=== PATIENT | male | born 1990 | race American Indian/Alaskan Native ===

== ENCOUNTER 2018-01-28 01:08 | Emergency (ER) | payer OTHER ==
[2018-01-28 02:06] LABS: Basophils % (Auto) 0.2 % (0.0-1.8); Eosinophils # (Auto) 0.3 K/mm3 (0.0-0.4); Eosinophils % (Auto) 1.9 % (0.0-4.3); Hematocrit 46.6 % (35.5-45.6); Hemoglobin 15.3 gm/dl (11.8-15.2); Lymphocytes # (Auto) 4.1 K/mm3 (1.2-5.4); Lymphocytes % (Auto) 23.2 % (13.4-35.0); Mean Corpuscular HGB Conc 33 % (32-34); Mean Corpuscular Hemoglobin 29 pg (28-32); Mean Corpuscular Volume 88 fl (84-94); Monocytes # (Auto) 1.7 K/mm3 (0.0-0.8); Monocytes % (Auto) 9.5 % (0.0-7.3); Platelet Count 266 K/mm3 (140-440); Red Blood Count 5.33 M/mm3 (3.65-5.03); Red Cell Distribution Width 13.5 % (13.2-15.2)
--- NOTE | 2018-01-28 02:23 | XRay Report ---
FINAL REPORT EXAM: XR CHEST ROUTINE 2V HISTORY: cough TECHNIQUE: PA and lateral views of the chest were submitted. FINDINGS: The heart size and mediastinum appear normal. The lungs are clear. Pleural fluid is not seen. The bones and soft tissues appear normal. IMPRESSION: Normal chest.
[2018-01-28 03:45] LABS: BUN/Creatinine Ratio 10; Blood Urea Nitrogen 11 mg/dL (9-20); Calcium 9.2 mg/dL (8.4-10.2); Hemolysis Index 8
[2018-01-28 11:28] VITALS: BP 137/92
--- NOTE | 2018-01-28 11:34 | Emergency Department Report ---
ED Chest Pain HPI - General Chief Complaint: Chest Pain Stated Complaint: CHEST PAIN,SHORT OF BREATH Time Seen by Provider: 01/28/18 11:22 Source: patient Mode of arrival: Ambulatory Limitations: No Limitations - History of Present Illness Initial Comments: 27 years old male history of hypertension, not on any medication. Patient presented to the ER with a chief complaint of left-sided chest pain, squeezing in nature and does not radiate associated with cough and shortness of breath. Patient was recently seen at an urgent clinic and he was diagnosed with strep throat without positive test. He is on amoxicillin. Patient stated that his symptoms he is not getting better with antibiotic that he is getting. Patient denied any fever, nausea or vomiting. MD Complaint: chest pain -: days(s) Onset: during rest Pain Location: left chest Severity scale (0 -10): 7 Quality: squeezing - Related Data Allergies Allergy/AdvReac Type Severity Reaction Status Date / Time No Known Allergies Allergy Unverified 01/28/18 01:21 Heart Score - HEART Score History: Slightly suspicious EKG: Non-specific Age: < 45 Risk factors: 1-2 risk factors Troponin: < normal limit HEART Score: 2 - Critical Actions Critical Actions: 0-3 pts:0.9-1.7%risk of adverse cardiac event.Candidate for discharge ED Review of Systems ROS: Stated complaint: CHEST PAIN,SHORT OF BREATH Other details as noted in HPI Comment: All other systems reviewed and negative Constitutional: denies: chills, fever ENT: throat pain Respiratory: cough, shortness of breath. denies: SOB with exertion, SOB at rest Cardiovascular: denies: chest pain, palpitations, dyspnea on exertion Gastrointestinal: denies: abdominal pain, nausea, vomiting, constipation, hematemesis, melena, hematochezia Skin: denies: rash, lesions, change in color, change in hair/nails ED Past Medical Hx - Past Medical History Previous Medical History?: No Hx Hypertension: Yes - Surgical History Past Surgical History?: No - Social History Smoking Status: Never Smoker Substance Use Type: None ED Physical Exam - General Limitations: No Limitations General appearance: alert, in no apparent distress - Head Head exam: Present: atraumatic, normocephalic - Eye Eye exam: Present: normal appearance, PERRL - ENT ENT exam: Present: normal exam, normal orophraynx, mucous membranes moist, TM's normal bilaterally, normal external ear exam - Neck Neck exam: Present: normal inspection, full ROM. Absent: tenderness, meningismus, lymphadenopathy, thyromegaly - Respiratory Respiratory exam: Present: normal lung sounds bilaterally. Absent: respiratory distress, wheezes, rales, rhonchi, stridor, chest wall tenderness, accessory muscle use, decreased breath sounds, prolonged expiratory - Cardiovascular Cardiovascular Exam: Present: regular rate, normal rhythm, normal heart sounds - GI/Abdominal GI/Abdominal exam: Present: soft, normal bowel sounds. Absent: distended, tenderness, guarding, rebound, rigid, organomegaly, mass, bruit, pulsatile mass - Extremities Exam Extremities exam: Present: normal inspection, full ROM, normal capillary refill - Back Exam Back exam: Present: normal inspection, full ROM - Neurological Exam Neurological exam: Present: alert, oriented X3, CN II-XII intact, normal gait - Skin Skin exam: Present: warm, intact, normal color ED Course Vital Signs 01/28/18 01/28/18 01/28/18 01:19 10:54 11:25 Temperature 98.7 F 97.9 F 98.3 F Pulse Rate 85 90 79 Respiratory 17 16 16 Rate Blood Pressure 141/84 150/100 Blood Pressure 137/92 [Right] O2 Sat by Pulse 98 97 100 Oximetry ED Medical Decision Making - Lab Data Result diagrams: 01/28/18 01:27 01/28/18 01:27 - EKG Data -: EKG Interpreted by Me EKG shows normal: sinus rhythm Rate: normal - EKG Data Interpretation: no acute changes - Radiology Data Radiology results: report reviewed Chest x-ray unremarkable. Critical care attestation.: If time is entered above; I have spent that time in minutes in the direct care of this critically ill patient, excluding procedure time. ED Disposition Clinical Impression: Chest pain, Acute bronchitis, Hypertension Disposition: -01 TO HOME OR SELFCARE Is pt being admited?: No Condition: Stable Instructions: Chest Pain (ED), Acute Bronchitis (ED), Hypertension (ED) Referrals: PRIMARY CARE,MD [Primary Care Provider] - 3-5 Days
== END 2018-01-28 12:38 | disposition home or self-care (01) ==
LOC: ED 01:08
DX: J20.9 Acute bronchitis, unspecified (principal); I10 Essential (primary) hypertension; R07.9 Chest pain, unspecified
CPT/HCPCS: 36415; 71046; 80048; 84484; 85025; 93005; 93010

== ENCOUNTER 2019-10-01 14:22 | Emergency (ER) | payer OTHER ==
[2019-10-01 14:46] VITALS: BP 129/86
--- NOTE | 2019-10-01 14:46 | Emergency Department Report ---
Blank Doc - Documentation Documentation: 29-year-old male that presents with unable to hear from right ear and s small bump in ear drum. This initial assessment/diagnostic orders/clinical plan/treatment(s) is/are subject to change based on patient's health status, clinical progression and re- assessment by fellow clinical providers in the ED. Further treatment and workup at subsequent clinical providers discretion. Patient/guardians urged not to elope from the ED as their condition may be serious if not clinically assessed and managed. Initial orders include: 1- Patient sent to [facility] for further evaluation and treatment 2- ear wax buildup, unable to visual TMs
[2019-10-01] MEDS ORDERED: DOCUSATE SODIUM 100 MG/10 ML ORAL LIQD PO ONE (16:54)
--- NOTE | 2019-10-01 16:59 | Emergency Department Report ---
ED ENT HPI - General Chief complaint: Urogenital-Male Stated complaint: RT EAR CLOGGED Time Seen by Provider: 10/01/19 14:44 Source: patient Mode of arrival: Ambulatory Limitations: No Limitations - History of Present Illness Initial comments: This is a 29-year-old -[place] male who presents to the emergency room with a decreased hearing and abscess of right ear. Patient reports noticing a painful boil in the right ear one week ago. He used peroxide and Q-tips which caused area to drain. Patient states yesterday he noticed decreased in hearing and felt painful abscess in right ear. He denies drainage, dizziness, fever, and chills. MD complaint: ear pain (right) Onset/Timin -: days(s) Location: R ear Severity: mild Severity scale (0 -10): 3 Quality: aching Consistency: intermittent Improves with: none Worsens with: none Associated Symptoms: hearing loss. denies: fever, cough, gum swelling, toothache, pain with swallowing, sore throat, tinnitus, discharge from ear, rhinorrhea - Related Data Previous Rx's Medication Instructions Recorded Last Taken Type ALBUTEROL Inhaler (OR & NICU) 2 puff IH QID PRN #1 inhalation 01/28/18 Unknown Rx [ProAir HFA Inhaler] Azithromycin [Zithromax Z-RENEA] 250 mg PO DAILY 1 Days tab 01/28/18 Unknown Rx hydroCHLOROthiazide [HCTZ] 25 mg PO QDAY #30 tablet 01/28/18 Unknown Rx Ciprofloxacin/Hydrocortisone 3 drop OT BID 7 Days #1 bottle 10/01/19 Unknown Rx [Ciprofloxacin HC OTIC] Allergies Allergy/AdvReac Type Severity Reaction Status Date / Time No Known Allergies Allergy Unverified 01/28/18 01:21 ED Dental HPI - General Chief complaint: Urogenital-Male Stated complaint: RT EAR CLOGGED Time Seen by Provider: 10/01/19 14:44 Source: patient Mode of arrival: Ambulatory Limitations: No Limitations - Related Data Previous Rx's Medication Instructions Recorded Last Taken Type ALBUTEROL Inhaler (OR & NICU) 2 puff IH QID PRN #1 inhalation 01/28/18 Unknown Rx [ProAir HFA Inhaler] Azithromycin [Zithromax Z-RENEA] 250 mg PO DAILY 1 Days tab 01/28/18 Unknown Rx hydroCHLOROthiazide [HCTZ] 25 mg PO QDAY #30 tablet 01/28/18 Unknown Rx Ciprofloxacin/Hydrocortisone 3 drop OT BID 7 Days #1 bottle 10/01/19 Unknown Rx [Ciprofloxacin HC OTIC] Allergies Allergy/AdvReac Type Severity Reaction Status Date / Time No Known Allergies Allergy Unverified 01/28/18 01:21 ED Review of Systems ROS: Stated complaint: RT EAR CLOGGED Other details as noted in HPI Constitutional: denies: chills, fever ENT: ear pain (right ear), hearing loss (right ear). denies: throat pain Respiratory: denies: cough, shortness of breath, wheezing Cardiovascular: denies: chest pain, palpitations Gastrointestinal: denies: abdominal pain, nausea, diarrhea Skin: denies: rash, lesions Neurological: denies: headache, weakness, paresthesias Psychiatric: denies: anxiety, depression ED Past Medical Hx - Past Medical History Previous Medical History?: Yes Hx Hypertension: Yes - Surgical History Past Surgical History?: No - Social History Smoking Status: Never Smoker Substance Use Type: Alcohol - Medications Home Medications: Home Medications Medication Instructions Recorded Confirmed Last Taken Type ALBUTEROL Inhaler (OR & NICU) 2 puff IH QID PRN #1 inhalation 01/28/18 Unknown Rx [ProAir HFA Inhaler] Azithromycin [Zithromax Z-RENEA] 250 mg PO DAILY 1 Days tab 01/28/18 Unknown Rx hydroCHLOROthiazide [HCTZ] 25 mg PO QDAY #30 tablet 01/28/18 Unknown Rx Ciprofloxacin/Hydrocortisone 3 drop OT BID 7 Days #1 bottle 10/01/19 Unknown Rx [Ciprofloxacin HC OTIC] ED Physical Exam - General Limitations: No Limitations General appearance: alert, in no apparent distress - ENT ENT exam: Present: normal orophraynx, mucous membranes moist, other (cerumen impaction of right ear, half a centimeter mass, tender, distal external canal). Absent: TM's normal bilaterally, normal external ear exam (normal external ear exam on the left) - Neck Neck exam: Present: normal inspection - Respiratory Respiratory exam: Present: normal lung sounds bilaterally. Absent: respiratory distress - Cardiovascular Cardiovascular Exam: Present: regular rate, normal rhythm. Absent: systolic murmur, diastolic murmur, rubs, gallop - Neurological Exam Neurological exam: Present: alert, oriented X3, normal gait - Psychiatric Psychiatric exam: Present: normal affect, normal mood - Skin Skin exam: Present: warm, dry, intact, normal color. Absent: rash ED Course Vital Signs 10/01/19 14:44 Temperature 97.5 F L Pulse Rate 78 Respiratory 16 Rate Blood Pressure 129/86 O2 Sat by Pulse 97 Oximetry ED Medical Decision Making - Medical Decision Making Patient is stable and was examined by me. Vitals normal. Physical assessment susceptible of cerumen impaction of right ear and sebaceous cyst right ear canal. Right ear irrigated with removal of cerumen. Ear canal erythematous. Start Ciprodex. Instructed to purchase Debrox ear wax removal for management of cerumen. Referral to ENT for continued care. Discussed plan with patient who agreed with plan. Discharged home in stable condition. Follow up with PCP in 24- 72 hours. Critical care attestation.: If time is entered above; I have spent that time in minutes in the direct care of this critically ill patient, excluding procedure time. ED Disposition Clinical Impression: Impacted cerumen of right ear, Sebaceous cyst of ear Disposition: - TO HOME OR SELFCARE Is pt being admited?: No Condition: Stable Instructions: Cerumen Impaction (ED) Additional Instructions: Follow-up with ENT doctor from the referral list below. Chest debrox from [id number] for ear wax removal. If you experience hearing loss, drainage from ear right ear return to the emergency room. Prescriptions: Ciprofloxacin/Hydrocortisone [Ciprofloxacin HC OTIC] 3 drop OT BID 7 Days #1 bottle Referrals: [email or web address] [Provider Group] - 3-5 Days [facility] [Provider Group] - 3-5 Days Forms: Work/School Release Form(ED) Time of Disposition: 18:29
[2019-10-01] MEDS ORDERED: IBUPROFEN 800 MG TAB PO ONE (18:48)
[2019-10-01] MEDS ORDERED: IBUPROFEN 800 MG TAB ONE (18:51)
== END 2019-10-01 19:06 | disposition home or self-care (01) ==
LOC: ED 14:22
DX: H61.21 Impacted cerumen, right ear (principal); L72.3 Sebaceous cyst; I10 Essential (primary) hypertension; Z79.899 Other long term (current) drug therapy